=== PATIENT | female | born 1945 | race Caucasian/White ===

== ENCOUNTER 2017-06-12 10:49 | Observation (INO) | payer OTHER ==
[2017-06-12] MEDS ORDERED: Aspirin 81 mg CHEW TAB* 81 MG TAB.CHEW PO ONE (10:58)
[2017-06-12] MEDS ORDERED: Nitroglycerin TAB 0.4 MG* 0.4 MG TAB SL ONE (11:05)
[2017-06-12 11:41] LABS: ABS Basophils 0.1 10^3/ul (0-0.2); ABS Eosinophils 0.1 10^3/ul (0-0.6); ABS Lymphocytes 2.6 10^3/ul (1.0-4.8); ABS Monocytes 0.5 10^3/ul (0-0.8); ABS Neutrophils 3.6 10^3/ul (1.5-7.7); ABS Nucleated RBC 0 10^3/ul; Eosinophil % 1.2 % (0-6); Hematocrit 39 % (35-47); Hemoglobin 13.5 g/dl (12.0-16.0); Lymphocyte % 38.4 % (25-47); Mean Corpuscular HGB Conc 35 g/dl (31-36); Mean Corpuscular Hemoglobin 30 pg (27-31); Mean Corpuscular Volume 86 fL (80-97); Nucleated Red Blood Cells % 0.2; Platelet Count 194 10^3/ul (150-450); Red Blood Count 4.57 10^6/ul (4.0-5.4); Red Cell Distribution Width 13 % (10.5-15); White Blood Count 6.8 10^3/ul (3.5-10.8)
--- NOTE | 2017-06-12 11:43 | RAD ---
INDICATION: Chest pain COMPARISON: None TECHNIQUE: An AP portable view obtained at 1120 hours is submitted. FINDINGS: Bones/Soft Tissues: There are no acute bony findings. Cardiomediastinal: The cardiomediastinal silhouette is normal. Lungs: There are no infiltrates. Pleura: There are no pleural effusions. Other: None IMPRESSION: NO ACTIVE DISEASE.
[2017-06-12 11:52] LABS: INR 0.92 (0.77-1.02)
[2017-06-12 11:55] LABS: EGFR Non-African American 69.5 (>60)
[2017-06-12] MEDS ORDERED: Nitroglycerin 2% OINT* 1 GM PAK TOPICAL ONE (12:09)
[2017-06-12] MEDS ORDERED: Ketorolac INJ* 30 MG/ML 1 ML VIAL IV PUSH ONE (12:09)
--- NOTE | 2017-06-12 13:19 | ED ---
Jaden Willson Tecjoon, scribed for Sb Howe MD on 06/12/17 at 1110 . HPI Chest Pain - HPI Summary HPI Summary: This patient is a 72 year old presenting to [facility] with a chief complaint of chest pain since yesterday night. Patient stated that the pain started up last night, but slept well despite that. Pain did not dissipate, so she went to see doctor, who referred to ED. The pain is described as a diffuse pressure and does not radiate The pain is rated 5/10 in severity. Symptoms aggravated by nothing. Symptoms alleviated by nothing. Patient denies SOB, cough, congestion, abd pain, fever, chills, any urinary symptoms. Patient has a FHx of cardiac disease. Patient has a PMHx of HLD,HTN. - History of Current Complaint Chief Complaint: EDChestPainROMI Time Seen by Provider: 06/12/17 10:57 Hx Obtained From: Patient Onset/Duration: Started Days Ago - 1, Still Present Timing: Constant Initial Severity: Moderate Current Severity: Moderate Pain Intensity: 5 Pain Scale Used: 0-10 Numeric Chest Pain Location: Diffuse Chest Pain Radiates: No Character: Pressure/Squeezing Aggravating Factor(s): Nothing Alleviating Factor(s): Nothing Associated Signs and Symptoms: Positive: Negative - SOB, cough, congestion, abd pain, fever, chills, any urinary symptoms - Allergy/Home Medications Allergies/Adverse Reactions: Allergies Allergy/AdvReac Type Severity Reaction Status Date / Time Penicillins Allergy Rash Verified 06/12/17 10:54 Sulfa (Sulfonamide Allergy Bleeding Verified 06/12/17 10:54 Antibiotics) Home Medications: Home Medications Aspirin EC TAB* [Ecotrin EC Low Dose 81 MG*] 81 mg PO DAILY 06/12/17 [History Confirmed 06/12/17] Atorvastatin* [Lipitor*] 10 mg PO DAILY 06/12/17 [History Confirmed 06/12/17] Cholecalciferol TAB* [Vitamin D TAB*] 1,000 unit PO DAILY 06/12/17 [History Confirmed 06/12/17] Cyanocobalamin TAB* [Vitamin B12 TAB*] 1,000 mcg PO DAILY 06/12/17 [History Confirmed 06/12/17] Losartan/Hydrochlorothiazide [Hyzaar 50/12.5 mg] 1 tab PO DAILY 06/12/17 [ History Confirmed 06/12/17] Multivitamins/Minerals TAB* [Theragran/minerals TAB*] 1 tab PO DAILY 06/12/17 [ History Confirmed 06/12/17] PMH/Surg Hx/FS Hx/Imm Hx Previously Healthy: No Cardiovascular History: Reports: Hx Hypertension - ON MEDICATION, Other Cardiovascular Problems/Disorders - HIGH CHOLESTEROL Musculoskeletal History: Denies: Hx Osteoporosis Sensory History: Reports: Hx Cataracts, Hx Contacts or Glasses - [id number] Denies: Hx Hearing Aid Opthamlomology History: Reports: Hx Cataracts, Hx Contacts or Glasses - [id number] EENT History: Denies: Hx Deafness Psychiatric History: Reports: Hx Depression - HISTORY OF - Cancer History Hx Chemotherapy: No Hx Radiation Therapy: No - Surgical History Surgery Procedure, Year, and Place: LEANA 1995 [place]. PARTOID TUMOR 1981 [facility] Hx Anesthesia Reactions: No Infectious Disease History: No Infectious Disease History: Denies: Traveled Outside the [place] in Last 30 Days - Family History Known Family History: Positive: Cardiac Disease - Social History Alcohol Use: Occasionally Hx Substance Use: No Substance Use Type: Reports: None Hx Tobacco Use: Yes Smoking Status (MU): Former Smoker Type: Cigarettes Have You Smoked in the Last Year: No Review of Systems Negative: Fever, Chills ENT: Negative - nasal congestion Positive: Chest Pain Negative: Shortness Of Breath, Cough Negative: Abdominal Pain Genitourinary: Negative - any urinary problems All Other Systems Reviewed And Are Negative: Yes Physical Exam - Summary Physical Exam Summary: Appearance: Well appearing, no pain distress Skin: warm, dry, reflects adequate perfusion Head/face: normal Eyes: EOMI, MAYELA ENT: normal, mucous membranes moist Neck: supple, non-tender, no bruits Respiratory: CTA, breath sounds present, no chest pain to palpation Cardiovascular: RRR, pulses symmetrical, strong Abdomen: non-tender, soft Bowel Sounds: present Musculoskeletal: normal, strength/ROM intact, no swelling in legs Neuro: normal, sensory motor intact, A&Ox3 Triage Information Reviewed: Yes Vital Signs On Initial Exam: Initial Vitals Temp Pulse Resp BP Pulse Ox 96.9 F 66 16 146/64 99 06/12/17 10:51 06/12/17 10:51 06/12/17 10:51 06/12/17 10:51 04/04/18 10:51 Vital Signs Reviewed: Yes Diagnostics - Vital Signs Vital Signs Temp Pulse Resp BP Pulse Ox 06/12/17 10:51 96.9 F 66 16 146/64 99 - Laboratory Lab Results: Lab Results 06/12/17 06/12/17 06/12/17 Range/Units 11:17 11:17 11:17 WBC 6.8 (3.5-10.8) 10^3/ul RBC 4.57 (4.0-5.4) 10^6/ul Hgb 13.5 (12.0-16.0) g/dl Hct 39 (35-47) % MCV 86 (80-97) fL MCH 30 (27-31) pg MCHC 35 (31-36) g/dl RDW 13 (10.5-15) % Plt Count 194 (150-450) 10^3/ul MPV 9.0 (7.4-10.4) um3 Neut % (Auto) 52.6 (38-83) % Lymph % (Auto) 38.4 (25-47) % Bland % (Auto) 6.7 (0-7) % Eos % (Auto) 1.2 (0-6) % Baso % (Auto) 1.1 (0-2) % Absolute Neuts (auto) 3.6 (1.5-7.7) 10^3/ul Absolute Lymphs (auto) 2.6 (1.0-4.8) 10^3/ul Absolute Monos (auto) 0.5 (0-0.8) 10^3/ul Absolute Eos (auto) 0.1 (0-0.6) 10^3/ul Absolute Basos (auto) 0.1 (0-0.2) 10^3/ul Absolute Nucleated RBC 0 10^3/ul Nucleated RBC % 0.2 INR (Anticoag Therapy) 0.92 (0.77-1.02) APTT 29.1 (26.0-36.3) seconds Sodium (139-145) mmol/L Potassium (3.5-5.0) mmol/L Chloride (101-111) mmol/L Carbon Dioxide (22-32) mmol/L Anion Gap (2-11) mmol/L BUN (6-24) mg/dL Creatinine (0.51-0.95) mg/dL Est GFR ( Amer) (>60) Est GFR (Non-Af Amer) (>60) BUN/Creatinine Ratio (8-20) Glucose (70-100) mg/dL Lactic Acid (0.5-2.0) mmol/L Calcium (8.6-10.3) mg/dL Total Bilirubin (0.2-1.0) mg/dL AST (13-39) U/L ALT (7-52) U/L Alkaline Phosphatase (34-104) U/L Troponin I (<0.04) ng/mL B-Natriuretic Peptide 19 ( - 100) pg/mL Total Protein (6.4-8.9) g/dL Albumin (3.2-5.2) g/dL Globulin (2-4) g/dL Albumin/Globulin Ratio (1-3) TSH (0.34-5.60) mcIU/mL 06/12/17 06/12/17 Range/Units 11:17 11:17 WBC (3.5-10.8) 10^3/ul RBC (4.0-5.4) 10^6/ul Hgb (12.0-16.0) g/dl Hct (35-47) % MCV (80-97) fL MCH (27-31) pg MCHC (31-36) g/dl RDW (10.5-15) % Plt Count (150-450) 10^3/ul MPV (7.4-10.4) um3 Neut % (Auto) (38-83) % Lymph % (Auto) (25-47) % Bland % (Auto) (0-7) % Eos % (Auto) (0-6) % Baso % (Auto) (0-2) % Absolute Neuts (auto) (1.5-7.7) 10^3/ul Absolute Lymphs (auto) (1.0-4.8) 10^3/ul Absolute Monos (auto) (0-0.8) 10^3/ul Absolute Eos (auto) (0-0.6) 10^3/ul Absolute Basos (auto) (0-0.2) 10^3/ul Absolute Nucleated RBC 10^3/ul Nucleated RBC % INR (Anticoag Therapy) (0.77-1.02) APTT (26.0-36.3) seconds Sodium 139 (139-145) mmol/L Potassium 3.6 (3.5-5.0) mmol/L Chloride 106 (101-111) mmol/L Carbon Dioxide 24 (22-32) mmol/L Anion Gap 9 (2-11) mmol/L BUN 14 (6-24) mg/dL Creatinine 0.81 (0.51-0.95) mg/dL Est GFR ( Amer) 89.4 (>60) Est GFR (Non-Af Amer) 69.5 (>60) BUN/Creatinine Ratio 17.3 (8-20) Glucose 96 (70-100) mg/dL Lactic Acid 1.1 (0.5-2.0) mmol/L Calcium 9.8 (8.6-10.3) mg/dL Total Bilirubin 1.50 H (0.2-1.0) mg/dL AST 28 (13-39) U/L ALT 28 (7-52) U/L Alkaline Phosphatase 86 (34-104) U/L Troponin I 0.00 (<0.04) ng/mL B-Natriuretic Peptide ( - 100) pg/mL Total Protein 6.9 (6.4-8.9) g/dL Albumin 4.3 (3.2-5.2) g/dL Globulin 2.6 (2-4) g/dL Albumin/Globulin Ratio 1.7 (1-3) TSH 2.94 (0.34-5.60) mcIU/mL Result Diagrams: 06/12/17 11:17 06/12/17 11:17 Lab Statement: Any lab studies that have been ordered have been reviewed, and results considered in the medical decision making process. - Radiology CXR Xray Interpretation: No Acute Changes - CXR reveals, per radiologist, IMPRESSION : NO ACTIVE DISEASE. ED physician has reviewed this radiology report. Radiology Interpretation Completed By: Radiologist - EKG 1103 Cardiac Rate: Bradycardia EKG Rhythm: Sinus Bradycardia - 53 BPM EKG Interpretation: normal axis, LVH criteria, normal ST Re-Evaluation - Re-Evaluation First Eval Re-Evaluation Time: 12:09 Change: Unchanged Comment: Patient sees no change in chest pain with nitroglycerin. Patient wishes to stay in hospital. Chest Pain Course/Dx - Course Course Of Treatment: HEART score 4. This patient is a 72 year old presenting to [facility] with a chief complaint of chest pain since yesterday night. Patient stated that the pain started up last night, but slept well despite that. An EKG reveals 1103, Sinus Bradycardia (54 BPM), normal axis, LVH criteria, normal ST. CXR reveals, per radiologist, IMPRESSION: NO ACTIVE DISEASE. ED physician has reviewed this radiology report. Bloodwork Obtained. Urinalysis Obtained. Test results with no significant abnormalities. In the ED course the patient was given Aspirin, Toradol, Nitroglycerin. Re-eval at 2108 show no improvement to chest pain with NTG. Patient wishes to stay in hospital. We discussed patient care with Dr. Peck (Hospitalist) and they agreed to admit the patient. Patient will be admitted with diagnosis of chest pain and ACS. The patient is agreeable with this plan. - Chest Pain Differential Diagnosis/HQI/PQRI: ACS, Angina, CHF, Chest Wall, Lower Respiratory Infection, Pulmonary Embolism - Diagnoses Provider Diagnoses: Chest pain, ACS (acute coronary syndrome) - Provider Notifications Discussed Care Of Patient With: Jannie Peck - Hospitalist Time Discussed With Above Provider: 12:45 - We discussed patient care with Dr. Peck (Hospitalist) and they agreed to admit the patient. Discharge - Sign-Out/Discharge Documenting (check all that apply): Discharge - Discharge Plan Condition: Fair Disposition: ADMITTED TO [facility] - Billing Disposition and Condition Condition: FAIR Disposition: [facility] The documentation as recorded by the Jaden reina Tecjoon accurately reflects the service I personally performed and the decisions made by , Sb Howe MD.
--- NOTE | 2017-06-12 15:56 | HP ---
CC: Dr. Peterson* HISTORY AND PHYSICAL: DATE OF ADMISSION: 06/11/17 PROVIDER: Yasir Kahn NP ATTENDING PHYSICIAN: Dr. Peck * (report dictated by Yasir Kahn NP). PRIMARY CARE DOCTOR: Dr. Peterson. CHIEF COMPLAINT: Chest pain. HISTORY OF PRESENT ILLNESS: Ms. Wilkinson is a 72-year-old female with a past medical history of hypertension and distant history of tobacco abuse, who presents to the emergency department today from her primary care office for chest pain. Ms. Wilkinson reports that last night prior to going bed she noted a "band of pressure" in her left and right chest wall. She reports she ignored this and went to bed. She was able to sleep the night; however, upon waking this morning she noted that she still was experiencing this band-like chest pressure. She denies a history of this before in the past. She reports that at times it radiates to her left shoulder and to her left lateral neck. She denies shortness of breath. No diaphoresis. No nausea. She reports this morning she went to her primary care's office and was seen not by her primary care, but by Dr. Moon at [facility], who did an EKG and referred the patient to the emergency department. In the emergency department, she has a flat troponin and EKG showing sinus bradycardia with a rate of [address] changes. There is no prior EKG to compare to. Due to that she continued to complain of chest pain, Hospital Medicine was asked to evaluate the patient for admission. On my evaluation in the emergency department, the patient was sitting up in bed , alert and oriented x3, in no acute distress. She does report she has continued to have some intermittent left chest wall pain that occasionally radiates to her left shoulder and left lateral neck and increases with pressure to the left chest wall and occasional movement. She denies any trauma, fall, or exertional activities. No recent illnesses or viral colds. She reports that she almost daily walks up a several flight of stairs at work and does have some what she describes as feeling winded, but denies ever having any chest pain. The patient will be admitted to hospitalist service for chest pain, rule out [place] with plan for cardiac stress test in the morning. PAST MEDICAL HISTORY: 1. Hypertension. 2. 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 3. Status post cholecystectomy in 1995. 4. Hyperlipidemia. 5. Obesity. 6. Vitamin B12 deficiency. 7. Vitamin D deficiency. CURRENT MEDICATIONS: 1. Lipitor 10 mg p.o. daily. 2. Aspirin 81 mg p.o. daily. 3. Losartan/hydrochlorothiazide 50/12.5 mg 1 tab p.o. daily. 4. Multivitamin with minerals 1 tab p.o. daily. 5. Vitamin D 1000 units p.o. daily. 6. Vitamin B12 1000 mcg p.o. daily. ALLERGIES: PENICILLIN and SULFA. FAMILY HISTORY: Both her parents had a history of coronary artery disease. Her mother also had diabetes and colon cancer. Her father at age 92 and her mother at age 86. SOCIAL HISTORY: The patient has a 15- to 20-year smoking history quitting approximately 45 years ago. Rare alcohol use. Denies recreational drug use. 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 Her main home is in [place], [place]; however, this spring she is renting apartment in [place] and plans to retire at the end of the semester. She is . She has 3 children. Her daughter, Sandrine Pisano is her healthcare proxy. 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 REVIEW OF SYSTEMS: A 14-point review of systems was performed. All the pertinent positives and negatives are mentioned in the history of present illness. Otherwise are negative. PHYSICAL EXAMINATION GENERAL APPEARANCE: Obese female, sitting up on the emergency room stretcher, alert and oriented x3, in no acute distress. VITAL SIGNS: Temperature 96.9, heart rate 65, respirations 19, O2 sat 97% on room air, blood pressure is 133/71. HEENT: Head is normocephalic, atraumatic. Pupils are equal and reactive to light. Oropharynx is clear. Moist mucous membranes. Good dentition. NECK: Supple. No JVD noted. Respiratory: Lungs are clear to auscultation bilaterally. Good aeration throughout. CARDIAC: S1, S2. Regular rate and rhythm. No murmurs, rubs, or gallops appreciated. No lower extremity edema noted. 2+ DP pulses bilaterally. ABDOMEN: Obese, soft, nontender, nondistended. Normal bowel sounds throughout. MUSCULOSKELETAL: No clubbing, cyanosis, or edema. Full range of motion in all extremities. Strength is 5/5 throughout. SKIN: Warm, pink, and dry. NEURO: Cranial nerves II through XII are grossly intact. PSYCH: Alert and oriented x3. Appropriate to situation. LABORATORY DATA AND DIAGNOSTIC STUDIES: Sodium 139, potassium 3.6, chloride 106, carbon dioxide 24, anion gap 9, BUN 14, creatinine 0.81, glucose 96, lactic acid 1.1, calcium 9.8. Total bilirubin 1.50, AST 28, ALT 28, alkaline phosphatase 86. Troponin 0.00. BNP 19. Total protein 6.9, albumin 4.3. TSH 2.94. INR 0.92. WBC 6.8, RBC 4.57, HGB 13.5, HCT 39, platelet count 194. EKG, sinus bradycardia with a rate of 54 with noted left ventricular hypertrophy , no ST changes noted. Chest x-ray, impression: No active disease. ASSESSMENT AND PLAN: Ms. Wilkinson is a 72-year-old female with a past medical history of obesity, hypertension, hyperlipidemia and distant tobacco abuse, who presents today to the emergency department with chest pain starting last night. 1. Chest pain, rule out myocardial infarction. The patient's VINICIO score is 3. The patient will be admitted to telemetry on observation. Her initial cardiac troponin is 0.00. No ST changes noted on EKG. No prior EKG to compare to. The plan will be for n.p.o. after midnight with cardiac nuclear exercise stress test in the morning. Continue aspirin 81 mg p.o. daily. The patient was given nitro patch in the emergency department, I do not think this is necessary at this time. Please note she does have reproducible left upper chest wall pain to palpation and movement; however, due to her risk factors I do think it warrants her being evaluated and monitored overnight on telemetry with stress test in the morning. We will continue to trend troponins. 2. Hyperlipidemia. Continue statin. 3. Hypertension. Continue losartan and hydrochlorothiazide. Appears to be well controlled at this time. 4. B12 deficiency. Continue vitamin B12. 5. Vitamin D deficiency. Continue vitamin D supplementation. 6. DVT prophylaxis: Heparin subcu. 7. Code status: Full code. 8. Disposition: OBV to telemetry. TIME SPENT: Approximately 60 minutes were spent on this admission. This case was discussed with attending physician, Dr. Peck, who agrees with the plan of care. YASIR KAHN, BONDING AND COMPOSITE FABRICATOR [id number]/[facility] #: [id number] ISATU
[2017-06-12] MEDS: Heparin VIAL(*) 5000 UNITS/ML VIAL (FIVE THOUSAND) SUBCUT SCH ×2 (16:07→22:21)
[2017-06-12] MEDS ORDERED: Acetaminophen TAB* 325 MG PO PRN (19:20)
[2017-06-13] MEDS: Heparin VIAL(*) 5000 UNITS/ML VIAL (FIVE THOUSAND) SUBCUT SCH (06:44)
[2017-06-13] MEDS ORDERED: Multivitamins/Minerals TAB PO SCH (09:00)
[2017-06-13] MEDS ORDERED: Losartan TAB* 25 MG PO SCH (09:00)
[2017-06-13] MEDS ORDERED: Aspirin EC TAB* 81 MG TAB.EC PO SCH (09:00)
[2017-06-13] MEDS ORDERED: Hydrochlorothiazide TAB* 25 MG PO SCH (09:00)
[2017-06-13] MEDS ORDERED: Atorvastatin* 10 MG TAB PO SCH ×2 (09:00→17:00)
[2017-06-13] MEDS ORDERED: Cyanocobalamin TAB* 500 MCG PO SCH (09:00)
[2017-06-13] MEDS ORDERED: Cholecalciferol TAB* 1000 UNITS PO SCH (09:00)
--- NOTE | 2017-06-13 11:07 | RAD ---
HISTORY: Chest pain, hypertension, hyperlipidemia, obesity, family history of heart disease COMPARISONS: None TECHNIQUE: A 1 day stress/rest myocardial perfusion study was performed, with exercise stress. The exercise portion was performed using the Pradeep protocol, for a total METs of 7. The stress portion was monitored by Dr. Jones. Gated SPECT imaging was performed, with CT-based attenuation correction DOSE: Stress: Technetium 99m tetrofosmin, 25.5 millicuries, injected at 10:00 AM on June 13, 2017 Rest: Technetium 99m tetrofosmin, 10.6 millicuries, injected at 6:37 AM on June 13, 2017 Pharmacologic agent: None FINDINGS: CARDIAC MONITORING: No EKG changes of ischemia with stress. Peak heart rate of 1 38 bpm, 93% of retained EF: 69% TID: 1.08 MOTION: Normal motion, with normal wall thickening. PERFUSION: There is a small inferolateral reversible defect that does not persist on the attenuation corrected images and may be artifactual. There is no definite fixed or reversible perfusion defect. OTHER: None IMPRESSION: NO DEFINITE FIXED OR REVERSIBLE PERFUSION DEFECT. ASSESSMENT: LOW RISK. Based on imaging criteria from ACC/AHA 2002. Guideline Update for the Management of Patient's with Chronic Stable Angina, table 23. Noninvasive Risk Stratification. CPT II Codes: 0747V4U
[2017-06-13 11:35] VITALS: BP 143/67
--- NOTE | 2017-06-14 00:05 | DS ---
CC: Dr. Peterson * DISCHARGE SUMMARY: DATE OF ADMISSION: 06/12/17 DATE OF DISCHARGE: 06/13/17 PRIMARY CARE PROVIDER: Dr. Peterson. DISCHARGE DIAGNOSIS: Chest pain likely musculoskeletal with low probability cardiac stress test documented on 06/13/17. SECONDARY DIAGNOSES: 1. History of hypertension. 2. History of parathyroid gland tumor, status post excision x2. 3. History of cholecystectomy. 4. Dyslipidemia. 5. Obesity. 6. Vitamin B12 deficiency and vitamin D deficiency. MEDICATIONS AT DISCHARGE: Unchanged from admission and include: 1. Lipitor 10 mg daily. 2. Aspirin 81 mg daily. 3. Losartan/hydrochlorothiazide 50/12.5 mg daily. 4. Multivitamin 1 tab daily. 5. Vitamin D 1000 units daily. 6. Vitamin B12 1000 mcg daily. STUDIES PERFORMED DURING THE HOSPITAL STAY: Included: Cardiac stress test, which was an exercise cardiac stress test. The nuclear portion documented by the radiologist showed no definite fixed or reversible perfusion defect, and low risk. The EF was noted to be 69%. The treadmill portion of the stress test was also documented as negative. PHYSICAL EXAMINATION AT THE TIME OF DISCHARGE: Blood pressure 143/67, heart rate of 60 and regular, respiratory rate of 16, oxygen saturation 98% on room air, temperature 98.5. General: The patient is a very pleasant 72-year-old female who is in no acute distress. Alert, awake and oriented x3. HEENT: Head atraumatic, normocephalic. Eyes: Pupils are equal, reactive to light and accommodation. Oropharynx clear. Mucosa moist. Neck: Supple. No JVD. No bruits bilaterally. Cardiovascular: Regular rate and rhythm. No murmurs. Respiratory: Clear to auscultation bilaterally. Abdomen: Soft, nontender. Bowel sounds are present in all 4 quadrants. Extremities: There is no edema. Pulses +2 bilaterally. No clubbing or cyanosis. Please note that this is a short summary of the patient's hospitalization. Please refer to further medical records for details. In addition, the patient was recommended to follow up with her primary care provider in approximately 4 to 7 days. [id number]/[facility] #: [id number] MTDD
== END 2017-06-13 12:20 | disposition home or self-care (01) ==
LOC: ED 10:49 → MEDTELE 12:17
PROVIDERS: ADMIT Internal Medicine; ATTEND Internal Medicine
DX: R07.9 Chest pain, unspecified (principal); E78.5 Hyperlipidemia, unspecified; I10 Essential (primary) hypertension; E53.8 Deficiency of other specified B group vitamins; Z90.49 Acquired absence of other specified parts of digestive tract; E66.9 Obesity, unspecified; Z79.82 Long term (current) use of aspirin; Z86.03 Personal history of neoplasm of uncertain behavior; Z87.891 Personal history of nicotine dependence
CPT/HCPCS: 36415; 71045; 78452; 80053; 83605; 83880; 84443; 84484; 85025; 85610; 85730; 93005; 93017; 96374; 99284; A9270-GY; A9502; G0378; J1644; J1885